=== PATIENT | male | born 1970 | race Caucasian/White ===

== ENCOUNTER 2024-07-23 10:39 | Emergency (ER) | payer BC, SELFPAY ==
[~2024-07-23 10:39] MED LIST: Iopamidol 370 76% 100 ML VIAL ONE
[2024-07-23 11:26] LABS: #Basophils 0.1 thou/uL (0.0-0.2); #Eosinophils 0.4 thou/uL (0.0-0.7); #Lymphocytes 3.1 thou/uL (1.20-3.40); #Monocytes 0.5 thou/uL (0.11-0.59); #Neutrophils 3.5 thou/uL (1.40-6.50); %Basophils 1.2 % (0.0-1.0); %Eosinophils 4.8 % (0.0-10.0); %Lymphocytes 41.1 % (21.0-51.0); %Monocytes 6.2 % (0.0-10.0); %Neutrophils 46.7 % (42.0-75.0); Hematocrit 44.5 % (42.0-52.0); Hemoglobin 15.7 g/dL (14.0-18.0); Mean Corpuscular HGB CONC 35.3 g/dL (32.0-36.0); Mean Corpuscular Hemoglobin 30.5 pg (27.0-31.0); Mean Corpuscular Volume 86.5 fl (78.0-98.0); Mean Platelet Volume 8.2 fL (7.4-10.4); Platelet Count 162 10x3/uL (130-400); RBC Distribution Width 11.4 % (11.5-14.5); Red Blood Cell (RBC) Count 5.14 mill/uL (4.70-6.10); White Blood Cell (WBC) Count 7.4 10x3/uL (4.8-10.8)
[2024-07-23 11:38] LABS: INR-International Normal Ratio 5.8; Prothrombin Time 52.4 sec (12.0-14.7)
[2024-07-23 11:39] LABS: PTT 46.5 sec (22.9-36.1)
[2024-07-23 11:40] LABS: Bilirubin, Total 0.6 mg/dL (0.2-1.2); Calcium 9.4 mg/dL (7.8-10.44); Globulin 2.9 g/dL (2.4-3.5); Potassium 4.2 mmol/L (3.5-5.1); Protein, Total 6.9 g/dL (6.0-8.3)
[2024-07-23] MEDS ORDERED: Acetaminophen 500 MG TAB ONE (11:42)
[2024-07-23] MEDS ORDERED: Ondansetron ODT 4 MG TAB ONE (11:42)
[2024-07-23] MEDS ORDERED: Morphine 4 MG/ML VIAL ONE ×2 (11:42→13:56)
[2024-07-23 11:43] LABS: Troponin I Less than 0.010 ng/mL (< 0.028)
[2024-07-23] MEDS ORDERED: Ondansetron PF 4 MG/2 ML Vial ONE (11:45)
[2024-07-23] MEDS ORDERED: Lactated Ringer's 1,000 ML ONE (12:16)
== END 2024-07-23 14:43 | disposition short-term general hospital (02) ==
LOC: NAV ERS 10:39
DX: R42 Dizziness and giddiness (principal); I10 Essential (primary) hypertension; E11.9 Type 2 diabetes mellitus without complications; Z86.718 Personal history of other venous thrombosis and embolism; Z79.01 Long term (current) use of anticoagulants; Z79.4 Long term (current) use of insulin
CPT/HCPCS: 36416; 70450; 70496; 70498; 71275; 74174; 80053; 84484; 85025; 85610; 85730; 93005; 94760; 96361; 96374; 96375; 96376; J2272; J2405; J7120; Q0162; Q9967